=== PATIENT | female | born 1950 | race Two or more races ===

== ENCOUNTER 2016-11-24 15:26 | Inpatient (IN) | payer MEDICARE, MEDICAID ==
[~2016-11-24] VITALS: Ht 160 cm; Wt 98.0 kg
[2016-11-24] MEDS ORDERED: COLACE100 MG ORAL (15:55)
[2016-11-24] MEDS ORDERED: XARELTO10 MG ORAL (15:55)
[2016-11-24] MEDS ORDERED: ZANTAC150 MG ORAL (15:55)
[2016-11-24] MEDS ORDERED: DIGOXIN0.125 MG/2 ORAL (15:55)
[2016-11-24] MEDS ORDERED: GABAPENTIN100 MG ORAL (15:55)
[2016-11-24] MEDS ORDERED: DICLOFENAC POTA50 MG PO (15:55)
[2016-11-24] MEDS ORDERED: METFORMIN HCL1000 M1 ORAL (15:55)
[2016-11-24] MEDS ORDERED: LEVEMIR100 UNIT/1 SUBQ (15:55)
[2016-11-24] MEDS ORDERED: LOSARTAN POTASS50 MG ORAL (15:55)
[2016-11-24 16:50] LABS: BASOPHILS % (AUTO) 1.1 % (0.0-2.0); EOSINOPHILS % (AUTO) 0.6 % (0.0-3.0); LYMPHOCYTES % (AUTO) 23.2 % (20.0-45.0); MEAN CORPUSCULAR HEMOGLOBIN 27.4 PG (27.0-31.0); MEAN CORPUSCULAR HGB CONC 34.1 G/DL (32.0-36.0); MEAN CORPUSCULAR VOLUME 80 FL (80-99); MEAN PLATELET VOLUME 5.5 FL (6.5-10.1); MONOCYTES % (AUTO) 7.7 % (1.0-10.0); NEUTROPHILS % (AUTO) 67.4 % (45.0-75.0); PLATELET COUNT 369 K/UL (150-450); RED BLOOD COUNT 5.53 M/UL (4.20-5.40); RED CELL DISTRIBUTION WIDTH 14.5 % (11.6-14.8); WHITE BLOOD COUNT 12.2 K/UL (4.8-10.8)
--- NOTE | 2016-11-24 17:08 | Diagnostic Imaging Report ---
Indication: Pain, status post fall Technique: One view of the chest Comparison: 07/12/2009 Findings: Lungs and pleural spaces are clear. Heart size is upper limits normal. Bones are grossly intact. No significant change Impression: No acute process
--- NOTE | 2016-11-24 17:29 | Emergency Room Report ---
History of Present Illness General Chief Complaint: Multiple Trauma/Fall Source: Patient Present Illness HPI 66-year-old female presents to ED for evaluation. Patient states she had a syncopal episode with fall in the shower today. Patient felt dizzy and fell in the shower hitting her head. Questionable LOC. Patient states that she is having a headache with some neck pain and lower back pain. Pain is throbbing, 7 /10, nonradiating. No other aggravating or relieving factors. Denies chest pain or shortness of breath. Denies blurry vision nausea or vomiting. States that she takes Xarelto for A. fib. No other aggravating or relieving factors. Denies any other associated symptoms Allergies: Coded Allergies: PEACH (Verified Allergy, Intermediate, 11/24/16) SHRIMP (Verified Allergy, Intermediate, 11/24/16) Patient History Past Medical History: DM, HTN, AFib, asthma Past Surgical History: none Pertinent Family History: none Social History: Denies: alcohol use, drug use, smoking Now: No Immunizations: UTD Reviewed Nursing Documentation: PMH: Agreed, PSxH: Agreed Nursing Documentation-PMH Past Medical History: No History, Except For Hx Cardiac Problems: Yes - a-fib Hx Hypertension: Yes Hx Asthma: Yes Hx Diabetes: Yes Review of Systems All Other Systems: negative except mentioned in HPI Physical Exam Vital Signs Date Time Temp Pulse Resp B/P Pulse Ox O2 Delivery O2 Flow Rate FiO2 11/24/16 15:33 98.1 86 15 143/83 98 Room Air Sp02 EP Interpretation: reviewed, normal General Appearance: no apparent distress, alert, GCS 15, non-toxic Head: normocephalic, atraumatic Eyes: bilateral eye PERRL, bilateral eye normal inspection ENT: hearing grossly normal, normal pharynx, no angioedema, normal voice Neck: full range of motion, supple/symm/no masses, tender lateral, tender midline Respiratory: chest non-tender, lungs clear, normal breath sounds, speaking full sentences Cardiovascular #1: regular rate, rhythm, no edema Cardiovascular #2: 2+ carotid (R), 2+ carotid (L), 2+ radial (R), 2+ radial (L) , 2+ dorsalis pedis (R), 2+ dorsalis pedis (L) Gastrointestinal: normal bowel sounds, non tender, soft, non-distended, no guarding, no rebound Rectal: deferred Genitourinary: normal inspection, no CVA tenderness, vertebral tenderness - Lspine Musculoskeletal: back normal, gait/station normal, normal range of motion, non- tender Neurologic: alert, oriented x3, responsive, motor strength/tone normal, sensory intact, speech normal Psychiatric: judgement/insight normal, memory normal, mood/affect normal, no suicidal/homicidal ideation Reflexes: 3+ bicep (R), 3+ bicep (L), 3+ tricep (R), 3+ tricep (L), 3+ knee (R) , 3+ knee (L) Skin: normal color, no rash, warm/dry, well hydrated Lymphatic: no adenopathy Medical Decision Making Diagnostic Impression: Primary Impression: Syncope and collapse Additional Impression: Head trauma Qualified Codes: S09.90XA - Unspecified injury of head, initial encounter ER Course Hospital Course 66-year-old F presents ED s/p syncopal episode. headache, neck pain and back pain s/p fall. Differential diagnoses include: DE/unstable angina, arrythmia, dehydration, CVA/ TIA Clinical course Patient placed on stretcher. 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 After initial history and physical I ordered labs, EKG, chest x-ray, IVFs, CT Brain, CT Cspine, CT Lspine labs reviewed- no leukocytosis, hemoglobin/hematocrit ok, electrolytes okay, troponins negative, coags ok EKG- NSR, no acute changes Chest x-ray- no acute process CT brain-unremarkable CT Cpsine, CT Lspine no fx Given syncopal episode, patient's age are risk factors and patient currently on anticoagulation there is risk for delayed head bleed. Patient should be admitted Case discussed with Dr. Collazo and he agreed to accept the patient to his service for further care and support I. I feel this is a highly complex case requiring extensive working including EKG/Rhythm strip, Xray/CT/US, Blood/urine lab work, repeat exams while in ED, and administration of strong opiates/narcotics for pain control, admission to hospital or close patient follow up. Diagnosis - syncope, head trauma admitted to telemetry in serious condition Labs Test 11/24/16 16:25 White Blood Count 12.2 K/UL (4.8-10.8) Red Blood Count 5.53 M/UL (4.20-5.40) Hemoglobin 15.1 G/DL (12.0-16.0) Hematocrit 44.3 % (37.0-47.0) Mean Corpuscular Volume 80 FL (80-99) Mean Corpuscular Hemoglobin 27.4 PG (27.0-31.0) Mean Corpuscular Hemoglobin Concent 34.1 G/DL (32.0-36.0) Red Cell Distribution Width 14.5 % (11.6-14.8) Platelet Count 369 K/UL (150-450) Mean Platelet Volume 5.5 FL (6.5-10.1) Neutrophils (%) (Auto) 67.4 % (45.0-75.0) Lymphocytes (%) (Auto) 23.2 % (20.0-45.0) Monocytes (%) (Auto) 7.7 % (1.0-10.0) Eosinophils (%) (Auto) 0.6 % (0.0-3.0) Basophils (%) (Auto) 1.1 % (0.0-2.0) Prothrombin Time 10.0 SEC (9.30-11.50) Prothromb Time International Ratio 1.0 (0.9-1.1) Activated Partial Thromboplast Time 28 SEC (23-33) Sodium Level 132 mEQ/L (135-145) Potassium Level 4.1 mEQ/L (3.4-4.9) Chloride Level 90 mEQ/L (98-107) Carbon Dioxide Level 26 mEQ/L (20-30) Anion Gap 16 (5-15) Blood Urea Nitrogen 17 mg/dL (7-23) Creatinine 0.9 mg/dL (0.5-0.9) Estimat Glomerular Filtration Rate > 60 mL/min (>60) Glucose Level 238 mg/dL (74-106) Calcium Level 9.6 mg/dL (8.6-10.2) Total Bilirubin 0.3 mg/dL (0.0-1.2) Aspartate Amino Transf (AST/SGOT) 30 U/L (5-40) Alanine Aminotransferase (ALT/SGPT) 24 U/L (3-33) Alkaline Phosphatase 162 U/L (35-104) Total Creatine Kinase 64 U/L (26-140) Creatine Kinase MB 2.1 ng/mL (< 3.8) Creatine Kinase MB Relative Index 3.2 Troponin I < 0.30 ng/mL (<=0.30) Total Protein 7.2 g/dL (6.6-8.7) Albumin 3.5 g/dL (3.5-5.2) Globulin 3.7 g/dL Albumin/Globulin Ratio 0.9 (1.0-2.7) EKG Diagnostic Results Rate: normal Rhythm: NSR ST Segments: no acute changes ASA given to the pt in ED: No Rhythm Strip Diag. Results EP Interpretation: yes Rhythm: NSR, no PVC's, no ectopy Chest X-Ray Diagnostic Results EP Interpretation: No Findings: no consolidation, no effusion, no pneumothorax, no acute cardiopulmonary disease Number of Views: 1 CT/MRI/US Diagnostic Results CT/MRI/US Diagnostic Results : Imaging Test Ordered: CT Head, CT Cspine, CT Lspine Impression CT head- no acute process CT Cspine - no acute process CT Lspine - no acute process Last Vital Signs Date Time Temp Pulse Resp B/P Pulse Ox O2 Delivery O2 Flow Rate FiO2 11/24/16 15:33 98.1 86 15 143/83 98 Room Air Status: improved Disposition: ADMITTED INPATIENT Condition: Serious Referrals: NON PHYSICIAN (PCP) RUFINO WATSON M.D. Nov 24, 2016 17:29
[2016-11-24 17:31] LABS: TROPONIN I < 0.30 ng/mL (<=0.30)
[2016-11-24 17:34] LABS: ALANINE AMINOTRANSFERASE 24 U/L (3-33); ALBUMIN/GLOBULIN RATIO 0.9 (1.0-2.7); ANION GAP 16 (5-15); ASPARTATE AMINO TRANSFERASE 30 U/L (5-40); CALCIUM 9.6 mg/dL (8.6-10.2); CARBON DIOXIDE 26 mEQ/L (20-30); CHLORIDE 90 mEQ/L (98-107); CREATININE 0.9 mg/dL (0.5-0.9); GLOMERULAR FILTRATION RATE > 60 mL/min (>60); HEMOLYSIS 13; POTASSIUM 4.1 mEQ/L (3.4-4.9); SODIUM 132 mEQ/L (135-145); TOTAL PROTEIN 7.2 g/dL (6.6-8.7)
[2016-11-24 17:35] VITALS: BP 174/64
[2016-11-24 17:45] LABS: CKMB 2.1 ng/mL (< 3.8)
[2016-11-24] MEDS ORDERED: DuoNeb 0.5-3(2.5)mg/3ml neb HHN PRN (18:45)
[2016-11-24] MEDS ORDERED: Mylanta II UD 30ml ORAL PRN (18:45)
[2016-11-24] MEDS ORDERED: Nitroglycerin Subl 0.4mg tab (Bottle Of 25) SL PRN (18:45)
[2016-11-24] MEDS ORDERED: LORazepam Inj 2mg/ml 1ml IV PRN (18:45)
[2016-11-24] MEDS ORDERED: Miralax 17gm pkt ORAL PRN (18:45)
[2016-11-24 19:10] VITALS: BP 165/62
[2016-11-24] MEDS: NovoLOG Insulin Flexpen SUBQ SCH (21:04)
[2016-11-24] MEDS: Heparin 5000 units/ml inj SUBQ SCH (21:05)
[2016-11-25] VITALS (8 sets, daily range): BP systolic 130–177; BP diastolic 67–84
[2016-11-25] MEDS: NovoLOG Insulin Flexpen SUBQ SCH ×4 (06:28→21:49)
[2016-11-25 07:40] LABS: APPEARANCE,URINE CLEAR; KETONES,URINE NEGATIVE (NEGATIVE); LEUKOCYTE ESTERASE ,URINE NEGATIVE (NEGATIVE); NITRITE,URINE NEGATIVE (NEGATIVE); PH,URINE 6 (4.5-8.0); PROTEIN,URINE NEGATIVE (NEGATIVE); UROBILINOGEN,URINE NORMAL MG/DL (0.0-1.0)
[2016-11-25 07:54] LABS: BACTERIA,URINE FEW /HPF; SQUAMOUS EPITHELIAL CELL,UR FEW /LPF (NONE/OCC); WBC,URINE 0-2 /HPF (0 - 2)
[2016-11-25 08:07] LABS: BASOPHILS % (AUTO) 0.9 % (0.0-2.0); EOSINOPHILS % (AUTO) 2.3 % (0.0-3.0); LYMPHOCYTES % (AUTO) 32.5 % (20.0-45.0); MEAN CORPUSCULAR HGB CONC 31.9 G/DL (32.0-36.0); MEAN CORPUSCULAR VOLUME 82 FL (80-99); MEAN PLATELET VOLUME 5.7 FL (6.5-10.1); MONOCYTES % (AUTO) 7.4 % (1.0-10.0); NEUTROPHILS % (AUTO) 56.9 % (45.0-75.0); PLATELET COUNT 421 K/UL (150-450); RED BLOOD COUNT 5.45 M/UL (4.20-5.40); RED CELL DISTRIBUTION WIDTH 15.1 % (11.6-14.8); WHITE BLOOD COUNT 8.7 K/UL (4.8-10.8)
[2016-11-25 08:17] LABS: PROTHROMBIN TIME 9.7 SEC (9.30-11.50)
[2016-11-25 08:46] LABS: ALANINE AMINOTRANSFERASE 21 U/L (3-33); ANION GAP 12 (5-15); ASPARTATE AMINO TRANSFERASE 24 U/L (5-40); CALCIUM 9.4 mg/dL (8.6-10.2); CARBON DIOXIDE 29 mEQ/L (20-30); CHLORIDE 98 mEQ/L (98-107); CHOLESTEROL 223 mg/dL (< 200); CREATININE 0.8 mg/dL (0.5-0.9); GLOMERULAR FILTRATION RATE > 60 mL/min (>60); HEMOLYSIS 5; LDL CHOLESTEROL (CALC.) 144 mg/dL (60-99); POTASSIUM 4.1 mEQ/L (3.4-4.9); SODIUM 139 mEQ/L (135-145)
[2016-11-25] MEDS: Losartan 50mg tab ORAL SCH (09:00)
[2016-11-25] MEDS: Digoxin 0.125mg tab ORAL SCH (09:00)
[2016-11-25] MEDS: Heparin 5000 units/ml inj SUBQ SCH ×2 (09:15→21:50)
--- NOTE | 2016-11-25 11:05 | Diagnostic Imaging Report ---
Indications: Syncope, neck pain Technique: Continuous helical CT imaging of the cervical spine performed with automatic exposure was on a Siemens sensation [address] scanner. Axial, coronal and sagittal images reconstructed at 3 mm slice thicknesses. CTDI volume(s): 24 mGy Total DLP: 499 mGy-cm Findings: Comparison: None. Lordotic curvature is straightened.Vertebral alignment is intact. No fracture, facet subluxation or dislocation, prevertebral soft tissue swelling, or other acute changes are demonstrated. The C3-4 through C6-7 disc spaces are narrowed with marginal osteophyte formation. There are degrees of facet sclerosis and hypertrophy present from C2-3 through C6-7. This results in apparent multilevel spinal stenosis and neural foraminal narrowing.. IMPRESSION: Straightening of cervical lordosis. This may be secondary to degenerative changes, positioning and/or muscular spasm.. Otherwise no evidence of acute cervical injury Degenerative spondylosis This correlates with Dr. Gruber's preliminary report The CT scanner at [facility] is accredited by the [employer] and the scans are performed using protocols designed to limit radiation exposure to as low as reasonably achievable to attain images of sufficient resolution adequate for diagnostic evaluation.
--- NOTE | 2016-11-25 11:11 | Diagnostic Imaging Report ---
Indications: Low back pain Technique: Continuous helical CT imaging of the lumbar spine was performed with automatic exposure control on a Siemens sensation [address] scanner. Axial, coronal, and sagittal images were reconstructed at 3 mm slice thicknesses. CTDI volume(s): 25 mGy Total DLP: 676 mGy-cm Findings: Comparison: None Vertebral alignment is intact. No fracture, facet subluxation or dislocation, lytic destruction, surrounding paraspinous soft tissue abnormality, or other acute change identified. The L2-3 through L5-S1 intervertebral disc spaces demonstrate annular disc bulges with marginal osteophyte formation. Associated vacuum phenomenon at L4-5. 9? of facet hypertrophy L3-4 through L5-S1. Bilateral L4-5 facet joints mildly diastatic. Mild spinal stenosis is suggested at L3-4 and L4-5. IMPRESSION: No evidence of acute abnormality of the lumbar spine Multilevel degenerative spondylosis with suggestion of mild spinal stenosis
--- NOTE | 2016-11-25 12:08 | Consultation ---
History of Present Illness General Date patient seen: Nov 25, 2016 Chief Complaint: Multiple Trauma/Fall Referring physician: dr Collazo Present Illness HPI 66-year-old female presents to ED for evaluation of a syncopal episode with fall in the shower yesterday. Patient felt dizzy and fell in the shower hitting her head. Patient states that she is having a headache with some neck pain and lower back pain. Denies chest pain or shortness of breath. Denies blurry vision nausea or vomiting. States that she takes Xarelto for A. fib. Allergies: Coded Allergies: PEACH (Verified Allergy, Intermediate, 11/24/16) SHRIMP (Verified Allergy, Intermediate, 11/24/16) Medication History Scheduled Diclofenac Potassium (Diclofenac Potassium), 50 MG PO TID, (Reported) Digoxin* (Digoxin*), 0.125 MG ORAL DAILY, (Reported) Docusate Sodium* (Colace*), 100 MG ORAL TWICE A DAY, (Reported) Gabapentin* (Gabapentin*), 100 MG ORAL THREE TIMES A DAY, (Reported) Insulin Detemir (Levemir), 50 SUBQ ACBREAKFAST, (Reported) Losartan Potassium* (Losartan Potassium*), 50 MG ORAL DAILY, (Reported) Metformin Hcl* (Metformin Hcl*), 1,000 MG ORAL BID, (Reported) Ranitidine Hcl* (Zantac*), 300 MG ORAL DAILY, (Reported) Rivaroxaban (Xarelto*), 20 MG ORAL DAILY, (Reported) Patient History Healthcare decision maker NONE Resuscitation status Full Code Advanced Directive on File No Past Medical/Surgical History Past Medical/Surgical History: (1) Atrial fibrillation (2) Syncope and collapse (3) Head trauma Review of Systems All Other Systems: negative except mentioned in HPI Physical Exam General Appearance: WD/WN Lines, tubes and drains: peripheral HEENT: normocephalic, atraumatic Neck: non-tender, normal alignment Respiratory/Chest: chest wall non-tender, lungs clear Cardiovascular/Chest: normal peripheral pulses Abdomen: normal bowel sounds Genitourinary/Rectal: normal genital exam Extremities: normal range of motion Skin Exam: normal pigmentation Neurologic: drug abuse 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 Last 24 Hour Vital Signs Date Time Temp Pulse Resp B/P Pulse Ox O2 Delivery O2 Flow Rate FiO2 11/25/16 11:19 97.7 70 18 161/73 96 Room Air 11/25/16 09:00 166/74 11/25/16 09:00 65 11/25/16 07:39 96.1 65 18 166/74 96 Room Air 11/25/16 04:25 97.0 73 20 177/70 95 Room Air 11/25/16 04:00 69 11/25/16 01:13 98.0 75 20 148/80 93 Room Air 11/25/16 00:00 98.0 75 20 150/74 95 Room Air 11/25/16 00:00 69 11/24/16 20:00 74 11/24/16 19:24 98.1 77 16 165/62 98 Room Air 11/24/16 19:19 98.1 11/24/16 19:10 98.1 77 16 165/62 98 Room Air 11/24/16 17:35 98.1 80 16 174/64 98 Room Air 11/24/16 15:33 98.1 86 15 143/83 98 Room Air Intake and Output 11/24/16 11/25/16 19:00 07:00 Intake Total 250 ml Output Total 350 ml Balance -100 ml Intake Oral 250 ml Output Urine Total 350 ml # Voids 1 Laboratory Tests Test 11/24/16 16:25 11/25/16 06:18 11/25/16 06:58 White Blood Count 12.2 K/UL (4.8-10.8) H 8.7 K/UL (4.8-10.8) Red Blood Count 5.53 M/UL (4.20-5.40) H 5.45 M/UL (4.20-5.40) H Hemoglobin 15.1 G/DL (12.0-16.0) 14.2 G/DL (12.0-16.0) Hematocrit 44.3 % (37.0-47.0) 44.5 % (37.0-47.0) Mean Corpuscular Volume 80 FL (80-99) 82 FL (80-99) Mean Corpuscular Hemoglobin 27.4 PG (27.0-31.0) 26.0 PG (27.0-31.0) L Mean Corpuscular Hemoglobin Concent 34.1 G/DL (32.0-36.0) 31.9 G/DL (32.0-36.0) L Red Cell Distribution Width 14.5 % (11.6-14.8) 15.1 % (11.6-14.8) H Platelet Count 369 K/UL (150-450) 421 K/UL (150-450) Mean Platelet Volume 5.5 FL (6.5-10.1) L 5.7 FL (6.5-10.1) L Neutrophils (%) (Auto) 67.4 % (45.0-75.0) 56.9 % (45.0-75.0) Lymphocytes (%) (Auto) 23.2 % (20.0-45.0) 32.5 % (20.0-45.0) Monocytes (%) (Auto) 7.7 % (1.0-10.0) 7.4 % (1.0-10.0) Eosinophils (%) (Auto) 0.6 % (0.0-3.0) 2.3 % (0.0-3.0) Basophils (%) (Auto) 1.1 % (0.0-2.0) 0.9 % (0.0-2.0) Prothrombin Time 10.0 SEC (9.30-11.50) 9.7 SEC (9.30-11.50) Prothromb Time International Ratio 1.0 (0.9-1.1) 1.0 (0.9-1.1) Activated Partial Thromboplast Time 28 SEC (23-33) 28 SEC (23-33) Sodium Level 132 mEQ/L (135-145) L 139 mEQ/L (135-145) Potassium Level 4.1 mEQ/L (3.4-4.9) 4.1 mEQ/L (3.4-4.9) Chloride Level 90 mEQ/L (98-107) L 98 mEQ/L (98-107) Carbon Dioxide Level 26 mEQ/L (20-30) 29 mEQ/L (20-30) Anion Gap 16 (5-15) H 12 (5-15) Blood Urea Nitrogen 17 mg/dL (7-23) 13 mg/dL (7-23) Creatinine 0.9 mg/dL (0.5-0.9) 0.8 mg/dL (0.5-0.9) Estimat Glomerular Filtration Rate > 60 mL/min (>60) > 60 mL/min (>60) Glucose Level 238 mg/dL (74-106) H 216 mg/dL (74-106) H Calcium Level 9.6 mg/dL (8.6-10.2) 9.4 mg/dL (8.6-10.2) Total Bilirubin 0.3 mg/dL (0.0-1.2) 0.4 mg/dL (0.0-1.2) Aspartate Amino Transf (AST/SGOT) 30 U/L (5-40) 24 U/L (5-40) Alanine Aminotransferase (ALT/SGPT) 24 U/L (3-33) 21 U/L (3-33) Alkaline Phosphatase 162 U/L (35-104) H 155 U/L (35-104) H Total Creatine Kinase 64 U/L (26-140) Creatine Kinase MB 2.1 ng/mL (< 3.8) Creatine Kinase MB Relative Index 3.2 Troponin I < 0.30 ng/mL (<=0.30) Total Protein 7.2 g/dL (6.6-8.7) 7.0 g/dL (6.6-8.7) Albumin 3.5 g/dL (3.5-5.2) 3.6 g/dL (3.5-5.2) Globulin 3.7 g/dL 3.4 g/dL Albumin/Globulin Ratio 0.9 (1.0-2.7) L 1.0 (1.0-2.7) Triglycerides Level 117 mg/dL (< 150) Cholesterol Level 223 mg/dL (< 200) H LDL Cholesterol 144 mg/dL (60-99) H HDL Cholesterol 56 mg/dL (> 60) Cholesterol/HDL Ratio 4.0 (3.3-4.4) Thyroid Stimulating Hormone (TSH) 1.820 uIU/mL (0.300-4.500) Urine Color Pale yellow Urine Appearance Clear Urine pH 6 (4.5-8.0) Urine Specific [place] 1.010 (1.005-1.035) Urine Protein Negative (NEGATIVE) Urine Glucose (UA) Negative (NEGATIVE) Urine Ketones Negative (NEGATIVE) Urine Occult Blood 5+ (NEGATIVE) H Urine Nitrite Negative (NEGATIVE) Urine Bilirubin Negative (NEGATIVE) Urine Urobilinogen Normal MG/DL (0.0-1.0) Urine Leukocyte Esterase Negative (NEGATIVE) Urine RBC 10-15 /HPF (0 - 2) H Urine WBC 0-2 /HPF (0 - 2) Urine Squamous Epithelial Cells Few /LPF (NONE/OCC) Urine Bacteria Few /HPF (NONE) Height (Feet): 5 Height (Inches): 3.00 Weight (Pounds): 216 Medications Current Medications Medications (Trade) Dose Ordered Sig/Demetrio Route PRN Reason Start Time Stop Time Status Last Admin Dose Admin Acetaminophen (Tylenol) 650 mg Q4H PRN ORAL fever 11/24/16 18:45 12/24/16 18:44 11/25/16 06:26 Al Hydroxide/Mg Hydroxide (Mylanta II) 30 ml Q6H PRN ORAL dyspepsia 11/24/16 18:45 12/24/16 18:44 Albuterol/ Ipratropium (DuoNeb 0.5-3(2.5)mg/3ml) 3 ml EVERY 4 HOURS PRN HHN Shortness of Breath 11/24/16 18:45 11/29/16 18:44 Clonidine HCl (Catapres) 0.1 mg Q4H PRN ORAL For High Blood Pressure 11/24/16 18:45 12/24/16 18:44 Dextrose (Dextrose 50%) STAT PRN IV Hypoglycemia 11/24/16 18:45 12/24/16 18:44 Digoxin (Lanoxin) 0.125 mg DAILY ORAL 11/25/16 09:00 12/25/16 08:59 11/25/16 09:00 Gabapentin (Neurontin) 100 mg THREE TIMES A DAY ORAL 11/24/16 21:00 12/24/16 20:59 11/25/16 09:00 Heparin Sodium (Porcine) (Heparin 5000 units/ml) 5,000 units EVERY 12 HOURS SUBQ 11/24/16 21:00 12/24/16 20:59 11/25/16 09:15 Insulin Aspart (NovoLOG) BEFORE MEALS AND HS SUBQ 11/24/16 21:00 12/24/16 20:59 11/25/16 12:06 Lorazepam (Ativan 2mg/ml 1ml) 0.5 mg Q4H PRN IV For Anxiety 11/24/16 18:45 12/01/16 18:44 Losartan Potassium (Cozaar) 50 mg DAILY ORAL 11/25/16 09:00 12/25/16 08:59 11/25/16 09:00 Morphine Sulfate (Morphine Sulfate) 1 mg EVERY 4 HOURS PRN IVP For Pain 7-10 11/24/16 18:45 12/01/16 18:44 Nitroglycerin (Ntg) 0.4 mg Q5M X 3 DOSES PRN SL Prn Chest Pain 11/24/16 18:45 12/24/16 18:44 Ondansetron HCl (Zofran) 4 mg Q6H PRN IVP Nausea & Vomiting 11/24/16 18:45 12/24/16 18:44 Polyethylene Glycol (Miralax) 17 gm HSPRN PRN ORAL Constipation 11/24/16 18:45 12/24/16 18:44 Ranitidine HCl (Zantac) 300 mg DAILY ORAL 11/25/16 09:00 12/25/16 08:59 11/25/16 09:00 Temazepam (Restoril) 15 mg HSPRN PRN ORAL Insomnia 11/24/16 18:45 12/01/16 18:44 11/24/16 21:02 Assessment/Plan Problem List: (1) Atrial fibrillation ICD Codes: I48.91 - Unspecified atrial fibrillation SNOMED: 78741647 (2) Syncope and collapse ICD Codes: R55 - Syncope and collapse SNOMED: 688065638 (3) Head trauma ICD Codes: S09.90XA - Unspecified injury of head, initial encounter SNOMED: 00213731 Qualifiers: Qualified Codes: S09.90XA - Unspecified injury of head, initial encounter Assessment/Plan telemetry monitory cardiac evaluation echo cardiogram adjust cardiac meds JEANNINE OLIVEIRA Nov 25, 2016 12:08
--- NOTE | 2016-11-25 18:48 | History and Physical Report ---
DATE OF ADMISSION: 11/24/2016 TIME: 10 a.m. CONSULTANTS: 1. Froy Hollins M.D. 2. Augusto Lang M.D. 3. Gustavo Carrillo M.D. CHIEF COMPLAINT: Syncope and head trauma. BRIEF HISTORY: The patient is a 66-year-old female who lives at home presented with syncopal episode, possible head trauma, she fell on the showers. The patient not sure if she actually passed out, diagnosed with above, and admitted to telemetry for further care. Currently, calm in bed, no complaint. No chest pain. No shortness of breath. No nausea, vomiting or diarrhea. PAST MEDICAL HISTORY: Diabetes, hypertension, and atrial fibrillation. PAST SURGICAL HISTORY: , gall bladder and tonsillectomy. MEDICATIONS: Lanoxin, Cozaar, Zantac, Neurontin, heparin, NovoLog, morphine, MiraLAX, Zofran, Ativan, and Restoril. ALLERGIES: Denied. SOCIAL HISTORY: No smoking. Occasional alcohol. No intravenous drug abuse. FAMILY HISTORY: Noncontributory. PHYSICAL EXAMINATION: GENERAL: Calm in bed, oriented x3, no acute distress. VITAL SIGNS: Temperature 96 degrees, pulse 65, respirations 18, and blood pressure 166/74. CARDIOVASCULAR: No murmur. LUNGS: Poor air exchange. ABDOMEN: Positive bowel sounds. Nontender and nondistended. EXTREMITIES: No clubbing, cyanosis or edema. NEUROLOGIC: Cranial Nerves II through XII are grossly intact. The patient moves all four extremities. The patient's muscle strength 4/5. LABORATORY AND DIAGNOSTIC DATA: Initial white count 12.2 and now CBC is normal. BMP shows glucose 216, otherwise normal. Troponin is less than 0.3. INR is 1.0. Urinalysis shows 5+ occult blood. ASSESSMENT: 1. Syncope. 2. Head trauma. 3. Fall. 4. Hypertension. 5. Diabetes. 6. Atrial fibrillation. PLAN: Continue pre-medications. Dr. Hollins, Dr. Lang, and Dr. Carrillo to consult. Troponin q.8 h. x3. EKG in the morning. Blood pressure and blood sugar control. Resume home medications. OT/PT. Dietary evaluation. CBC and BMP in the morning. We will continue to follow this patient. Hayden Collazo D.O. DR: CEASAR JOB#: [id number] CC:
[2016-11-26] VITALS (7 sets, daily range): BP systolic 142–187; BP diastolic 60–90
[2016-11-26] MEDS: NovoLOG Insulin Flexpen SUBQ SCH ×4 (06:29→20:28)
--- NOTE | 2016-11-26 07:59 | Diagnostic Imaging Report ---
Indications: SYNCOPE Technique: Continuous helical CT imaging of the brain was performed with nonionic exposure control on a Siemens sensation [address] scanner. Axial and coronal images were reconstructed at 5 mm slice thickness and interval. CTDI volume(s): 70 mGy Total DLP: 1432 mGy-cm Findings: Comparison: None Confluent low attenuation is present in the bilateral periventricular white matter. Apparent small focus of low attenuation/parenchymal loss left cerebellar hemisphere. Ventricles, cisterns, and sulci are diffusely prominent. Degree of ventricular dilation appears out of portion to peripheral atrophy. No evidence of mass or hemorrhage, mass effect, midline shift, hydrocephalus, or increased intracranial pressure. Bone window images are unremarkable. Visualized paranasal sinuses and mastoid air cells are clear. IMPRESSION: No evidence of acute intracranial pathology Suggestion of old lacunar infarct left cerebral hemisphere. Bilateral cerebral periventricular white matter low attenuation, nonspecific, likely chronic microvascular ischemic in nature. Atrophy with ventriculomegaly. An element of normal pressure hydrocephalus must be considered. This correlates with preliminary report generated overnight by Dr. Gruber. The CT scanner at [facility] is accredited by the [employer] and the scans are performed using protocols designed to limit radiation exposure to as low as reasonably achievable to attain images of sufficient resolution adequate for diagnostic evaluation.
--- NOTE | 2016-11-26 08:00 | General Progress Note ---
Assessment/Plan Problem List: (1) Head trauma ICD Codes: S09.90XA - Unspecified injury of head, initial encounter SNOMED: [id number] Qualifiers: Qualified Codes: S09.90XA - Unspecified injury of head, initial encounter (2) Atrial fibrillation ICD Codes: I48.91 - Unspecified atrial fibrillation SNOMED: 65688207 (3) Syncope and collapse ICD Codes: R55 - Syncope and collapse SNOMED: 041901238 Status: stable, progressing, tolerating diet Assessment/Plan ot pt diet cardio neuro eval cbc bmp am Subjective Constitutional: Reports: weakness Allergies: Coded Allergies: PEACH (Verified Allergy, Intermediate, 11/24/16) SHRIMP (Verified Allergy, Intermediate, 11/24/16) All Systems: reviewed and negative except above Subjective sl head ache Objective Last 24 Hour Vital Signs Date Time Temp Pulse Resp B/P Pulse Ox O2 Delivery O2 Flow Rate FiO2 11/26/16 06:00 97.0 62 20 158/72 100 Room Air 96.0 11/26/16 04:00 97.2 67 20 167/78 100 Room Air 96.0 11/26/16 04:00 64 11/26/16 00:00 73 11/26/16 00:00 98.0 70 20 153/78 100 Room Air 11/25/16 20:00 98.0 77 20 157/84 100 Room Air 11/25/16 20:00 81 11/25/16 19:57 84 20 100 Room Air 11/25/16 19:53 81 18 97 Room Air 11/25/16 19:35 81 18 Room Air 11/25/16 16:00 65 11/25/16 15:33 97.3 70 18 130/67 95 Room Air 11/25/16 12:08 161/73 11/25/16 12:00 68 11/25/16 11:19 97.7 70 18 161/73 96 Room Air 11/25/16 09:00 166/74 11/25/16 09:00 65 11/25/16 08:00 72 Intake and Output 11/25/16 11/26/16 19:00 07:00 Intake Total 720 ml 124 ml Output Total 400 ml Balance 320 ml 124 ml Intake Oral 720 ml 124 ml Output Urine Total 400 ml # Voids 1 1 Height (Feet): 5 Height (Inches): 3.00 Weight (Pounds): 216 General Appearance: alert EENT: normal ENT inspection Neck: normal alignment Cardiovascular: normal peripheral pulses, normal rate, regular rhythm Respiratory/Chest: chest wall non-tender, lungs clear, normal breath sounds Abdomen: normal bowel sounds, non tender, soft Extremities: normal inspection Edema: no edema noted Arm (L), no edema noted Arm (R), no edema noted Leg (L), no edema noted Leg (R), no edema noted Pedal (L), no edema noted Pedal (R), no edema noted Generalized Neurologic: responsive, motor weakness Skin: normal pigmentation, warm/dry DUNCAN BETHEA Nov 26, 2016 08:00
[2016-11-26] MEDS: Digoxin 0.125mg tab ORAL SCH (08:32)
[2016-11-26] MEDS: Losartan 50mg tab ORAL SCH (08:33)
[2016-11-26 08:37] LABS: BASOPHILS % (AUTO) 1.9 % (0.0-2.0); EOSINOPHILS % (AUTO) 2.6 % (0.0-3.0); LYMPHOCYTES % (AUTO) 35.4 % (20.0-45.0); MEAN CORPUSCULAR HEMOGLOBIN 25.8 PG (27.0-31.0); MEAN CORPUSCULAR HGB CONC 31.4 G/DL (32.0-36.0); MEAN CORPUSCULAR VOLUME 82 FL (80-99); MEAN PLATELET VOLUME 5.5 FL (6.5-10.1); MONOCYTES % (AUTO) 7.6 % (1.0-10.0); NEUTROPHILS % (AUTO) 52.6 % (45.0-75.0); PLATELET COUNT 357 K/UL (150-450); RED BLOOD COUNT 5.55 M/UL (4.20-5.40); RED CELL DISTRIBUTION WIDTH 14.9 % (11.6-14.8)
[2016-11-26] MEDS: Heparin 5000 units/ml inj SUBQ SCH ×2 (08:39→20:28)
[2016-11-26 08:47] LABS: ANION GAP 14 (5-15); CARBON DIOXIDE 25 mEQ/L (20-30); CHLORIDE 96 mEQ/L (98-107); CREATININE 0.8 mg/dL (0.5-0.9); GLOMERULAR FILTRATION RATE > 60 mL/min (>60); HEMOLYSIS 5; POTASSIUM 4.1 mEQ/L (3.4-4.9); SODIUM 135 mEQ/L (135-145)
--- NOTE | 2016-11-26 15:57 | Cardiology Progress Note ---
Assessment/Plan Assessment/Plan The patient is seen and examined, full consult note will be dictated shortly. Objective Last 24 Hour Vital Signs Date Time Temp Pulse Resp B/P Pulse Ox O2 Delivery O2 Flow Rate FiO2 11/26/16 15:28 96.6 74 18 152/70 96 Room Air 11/26/16 12:00 71 11/26/16 11:31 97.3 77 18 142/74 93 Room Air 11/26/16 08:33 149/77 11/26/16 08:32 73 11/26/16 08:00 73 11/26/16 07:59 97.0 73 18 187/90 97 Room Air 11/26/16 06:40 69 18 Room Air 21 11/26/16 06:00 97.0 62 20 158/72 100 Room Air 96.0 11/26/16 04:00 97.2 67 20 167/78 100 Room Air 96.0 11/26/16 04:00 64 11/26/16 00:00 73 11/26/16 00:00 98.0 70 20 153/78 100 Room Air 11/25/16 20:00 98.0 77 20 157/84 100 Room Air 11/25/16 20:00 81 11/25/16 19:57 84 20 100 Room Air 11/25/16 19:53 81 18 97 Room Air 11/25/16 19:35 81 18 Room Air 11/25/16 16:00 65 Intake and Output 11/25/16 11/26/16 19:00 07:00 Intake Total 720 ml 124 ml Output Total 400 ml Balance 320 ml 124 ml Intake Oral 720 ml 124 ml Output Urine Total 400 ml # Voids 1 1 Laboratory Tests Test 11/26/16 07:35 White Blood Count 8.0 K/UL (4.8-10.8) Red Blood Count 5.55 M/UL (4.20-5.40) H Hemoglobin 14.3 G/DL (12.0-16.0) Hematocrit 45.6 % (37.0-47.0) Mean Corpuscular Volume 82 FL (80-99) Mean Corpuscular Hemoglobin 25.8 PG (27.0-31.0) L Mean Corpuscular Hemoglobin Concent 31.4 G/DL (32.0-36.0) L Red Cell Distribution Width 14.9 % (11.6-14.8) H Platelet Count 357 K/UL (150-450) Mean Platelet Volume 5.5 FL (6.5-10.1) L Neutrophils (%) (Auto) 52.6 % (45.0-75.0) Lymphocytes (%) (Auto) 35.4 % (20.0-45.0) Monocytes (%) (Auto) 7.6 % (1.0-10.0) Eosinophils (%) (Auto) 2.6 % (0.0-3.0) Basophils (%) (Auto) 1.9 % (0.0-2.0) Sodium Level 135 mEQ/L (135-145) Potassium Level 4.1 mEQ/L (3.4-4.9) Chloride Level 96 mEQ/L (98-107) L Carbon Dioxide Level 25 mEQ/L (20-30) Anion Gap 14 (5-15) Blood Urea Nitrogen 13 mg/dL (7-23) Creatinine 0.8 mg/dL (0.5-0.9) Estimat Glomerular Filtration Rate > 60 mL/min (>60) Glucose Level 200 mg/dL (74-106) H Calcium Level 9.0 mg/dL (8.6-10.2) LAUREL VANEGAS Nov 26, 2016 15:57
--- NOTE | 2016-11-26 18:44 | Pulmonology Progress Note ---
Assessment/Plan Problems: (1) Atrial fibrillation (2) Syncope and collapse (3) Head trauma Assessment/Plan monitor in telemetry cardio note appreciated pain control titrate cardiac meds. Subjective ROS Limited/Unobtainable: No Interval Events: still c/o neck pain Allergies: Coded Allergies: PEACH (Verified Allergy, Intermediate, 11/24/16) SHRIMP (Verified Allergy, Intermediate, 11/24/16) Objective Last 24 Hour Vital Signs Date Time Temp Pulse Resp B/P Pulse Ox O2 Delivery O2 Flow Rate FiO2 11/26/16 16:00 76 11/26/16 15:28 96.6 74 18 152/70 96 Room Air 11/26/16 12:00 71 11/26/16 11:31 97.3 77 18 142/74 93 Room Air 11/26/16 08:33 149/77 11/26/16 08:32 73 11/26/16 08:00 73 11/26/16 07:59 97.0 73 18 187/90 97 Room Air 11/26/16 06:40 69 18 Room Air 21 11/26/16 06:00 97.0 62 20 158/72 100 Room Air 96.0 11/26/16 04:00 97.2 67 20 167/78 100 Room Air 96.0 11/26/16 04:00 64 11/26/16 00:00 73 11/26/16 00:00 98.0 70 20 153/78 100 Room Air 11/25/16 20:00 98.0 77 20 157/84 100 Room Air 11/25/16 20:00 81 11/25/16 19:57 84 20 100 Room Air 11/25/16 19:53 81 18 97 Room Air 11/25/16 19:35 81 18 Room Air Intake and Output 11/25/16 11/26/16 19:00 07:00 Intake Total 720 ml 124 ml Output Total 400 ml Balance 320 ml 124 ml Intake Oral 720 ml 124 ml Output Urine Total 400 ml # Voids 1 1 Objective General Appearance: WD/WN HEENT: normocephalic, atraumatic Respiratory/Chest: chest wall non-tender, lungs clear Cardiovascular: normal peripheral pulses, normal rate, regular rhythm Abdomen: normal bowel sounds, soft, non tender, no organomegaly Extremities: no cyanosis, no clubbing Skin: no rash, no lesions 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 Lymphatic: no neck adenopathy, no groin adenopathy Laboratory Tests 11/26/16 07:35: White Blood Count 8.0, Red Blood Count 5.55H, Hemoglobin 14.3, Hematocrit 45.6, Mean Corpuscular Volume 82, Mean Corpuscular Hemoglobin 25.8L, Mean Corpuscular Hemoglobin Concent 31.4L, Red Cell Distribution Width 14.9H, Platelet Count 357 , Mean Platelet Volume 5.5L, Neutrophils (%) (Auto) 52.6, Lymphocytes (%) (Auto ) 35.4, Monocytes (%) (Auto) 7.6, Eosinophils (%) (Auto) 2.6, Basophils (%) ( Auto) 1.9, Sodium Level 135, Potassium Level 4.1, Chloride Level 96L, Carbon Dioxide Level 25, Anion Gap 14, Blood Urea Nitrogen 13, Creatinine 0.8, Estimat Glomerular Filtration Rate > 60, Glucose Level 200H, Calcium Level 9.0 Current Medications Medications (Trade) Dose Ordered Sig/Demetrio Route PRN Reason Start Time Stop Time Status Last Admin Dose Admin Acetaminophen (Tylenol) 650 mg Q4H PRN ORAL fever 11/24/16 18:45 12/24/16 18:44 11/25/16 06:26 Al Hydroxide/Mg Hydroxide (Mylanta II) 30 ml Q6H PRN ORAL dyspepsia 11/24/16 18:45 12/24/16 18:44 Albuterol/ Ipratropium (DuoNeb 0.5-3(2.5)mg/3ml) 3 ml EVERY 4 HOURS PRN HHN Shortness of Breath 11/24/16 18:45 11/29/16 18:44 11/25/16 19:56 Clonidine HCl (Catapres) 0.1 mg Q4H PRN ORAL For High Blood Pressure 11/24/16 18:45 12/24/16 18:44 11/25/16 12:08 Dextrose (Dextrose 50%) STAT PRN IV Hypoglycemia 11/24/16 18:45 12/24/16 18:44 Digoxin (Lanoxin) 0.125 mg DAILY ORAL 11/25/16 09:00 12/25/16 08:59 11/26/16 08:32 Gabapentin (Neurontin) 100 mg THREE TIMES A DAY ORAL 11/24/16 21:00 12/24/16 20:59 11/26/16 17:13 Heparin Sodium (Porcine) (Heparin 5000 units/ml) 5,000 units EVERY 12 HOURS SUBQ 11/24/16 21:00 12/24/16 20:59 11/26/16 08:39 Insulin Aspart (NovoLOG) BEFORE MEALS AND HS SUBQ 11/24/16 21:00 12/24/16 20:59 11/26/16 17:14 Lorazepam (Ativan 2mg/ml 1ml) 0.5 mg Q4H PRN IV For Anxiety 11/24/16 18:45 12/01/16 18:44 Losartan Potassium (Cozaar) 50 mg DAILY ORAL 11/25/16 09:00 12/25/16 08:59 11/26/16 08:33 Morphine Sulfate (Morphine Sulfate) 1 mg EVERY 4 HOURS PRN IVP For Pain 7-10 11/24/16 18:45 12/01/16 18:44 Nitroglycerin (Ntg) 0.4 mg Q5M X 3 DOSES PRN SL Prn Chest Pain 11/24/16 18:45 12/24/16 18:44 Ondansetron HCl (Zofran) 4 mg Q6H PRN IVP Nausea & Vomiting 11/24/16 18:45 12/24/16 18:44 Polyethylene Glycol (Miralax) 17 gm HSPRN PRN ORAL Constipation 11/24/16 18:45 12/24/16 18:44 Ranitidine HCl (Zantac) 300 mg DAILY ORAL 11/25/16 09:00 12/25/16 08:59 11/26/16 08:33 Temazepam (Restoril) 15 mg HSPRN PRN ORAL Insomnia 11/24/16 18:45 12/01/16 18:44 11/25/16 21:48 JEANNINE OLIVEIRA Nov 26, 2016 18:44
--- NOTE | 2016-11-26 18:51 | Consultation ---
Consult Note Consult Note NEUROLOGY CONSULTATION: Full note dictated #[id number] 66 y/o, RH, CF with a PH of psoriasis, HTN, DM, A-fib, ADHD, Obesity On 11/24/16 was in the bathroom felt dizzy and the left side of the head hit the wall and she collapsed. She is uncertain if she passed out completely or not, however she was dazed for ~ 1-2 hours following the fall. At this time she has a left sided headache and neck pain. ON EXAM: G 2/4 C/PS and trapezius spasm L>R. Mild memory problems Globally diminished reflexes. IMPRESSION: Possible syncopal episode followed by CHT. Residual headache and neck pain. CT of brain with atrophy and old left cerebellar infarct. REC: Continue present Rx Carotid duplex Flexeril 10 mg q HS. Observe. Amy Juan M.D., M.S.P.AMY JONES Nov 26, 2016 18:51
--- NOTE | 2016-11-26 19:01 | Cardiology Report ---
APPROVED REPORT EXAM: Two-dimensional and M-mode echocardiogram with Doppler and color Doppler. INDICATION Left ventricular function M-Mode DIMENSIONS IVSd1.0 (0.7-1.1cm)Left Atrium (MM)4.1 (1.6-4.0cm) LVDd4.2 (3.5-5.6cm)Aortic Root2.6 (2.0-3.7cm) PWd0.9 (0.7-1.1cm)Aortic Cusp Exc.1.6 (1.5-2.0cm) LVDs2.4 (2.5-4.0cm) PWs1.2 cm Technically difficult study due to poor acoustic windows. Normal left ventricular chamber size, systolic function and wall motion. Left ventricular ejection fraction estimated to be 60-65%. Mild left ventricular hypertrophy. No evidence of pericardial fat or effusion. Right cardiac chamber sizes are within normal limits. Mild left atrial enlargement by 2D. Focal aortic valve sclerosis with adequate cusp excursion Aortic root calcification Thickened mitral valve leaflets with normal excursion. Mild mitral annulus and aortic root calcification. Pulmonic valve not well visualized. Normal tricuspid valve structure. IVC is normal in size with physiologic collapse. A color flow and spectral Doppler study was performed and revealed: No aortic regurgitation. Trace mitral regurgitation. Mitral inflow velocities ind left Left ventricular diastolic dysfunction grade 1. Trace tricuspid regurgitation. Tricuspid systolic velocities suggests peak right ventricular systolic pressure of 18 mmHg
[2016-11-26 19:39] LABS: THYROID STIMULATING HORMONE 2.18 uIU/mL (0.300-4.500)
[2016-11-26 20:09] LABS: HEMOGLOBIN A1C 9.5 % (< 6.0)
[2016-11-26] MEDS: Cyclobenzaprine 10mg Tab ORAL SCH (21:07)
[2016-11-27] VITALS (8 sets, daily range): BP systolic 122–178; BP diastolic 71–111
--- NOTE | 2016-11-27 00:48 | Consultation ---
DATE OF CONSULTATION: 11/26/2016 NEUROLOGY CONSULTATION REQUESTING PHYSICIAN: Hayden Collazo D.O. HISTORY: Ms. Jory Castro is a 66-year-old, right-handed, lady, who does have a past history of hypertension, diabetes mellitus, chronic atrial fibrillation, ADHD, and obesity. She was functioning relatively well until the afternoon of 11/24/2016 when she was in the bathroom. She suddenly felt dizzy and the next thing she remembers is hitting the left side of her head against the wall and then collapsing. She is uncertain if she passed out completely or not. However, she did feel quite dazed after the bump on the head and she continued to feel little dazed for approximately an hour or two. She was then brought into the [facility] emergency room and evaluated. Imaging studies of the brain revealed no intracranial hemorrhage. Since she has been here, she has continued to have left-sided headache and significant neck pain. However, she denies any weakness on one side or the other, numbness on one side or the other, problems with speech, problems with language, problems with vision, or any other neurological problems. She also denies any similar symptoms in the past. PAST MEDICAL HISTORY: Significant for hypertension, diabetes mellitus, atrial fibrillation, ADHD, and obesity. FAMILY HISTORY: Nothing significant. PERSONAL HISTORY: Home: She lives at home with her son and daughter. 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 Habits: She denies the use of tobacco or illicit drugs, but does have rare alcoholic drink. PRESENT MEDICATIONS: Include digoxin, losartan, ranitidine, gabapentin, heparin for DVT prophylaxis, insulin, DuoNeb, Tylenol p.r.n., morphine p.r.n.,MiraLAX p.r.n., Zofran p.r.n., lorazepam p.r.n., temazepam p.r.n., Mylanta p.r.n., nitroglycerin, and clonidine p.r.n. PHYSICAL EXAMINATION: GENERAL: She is a well-developed, well-nourished, obese, lady, lying in bed, in no acute distress. VITAL SIGNS: Pulse 74 per minute, blood pressure 152/70 mmHg, respirations 18 per minute, and temperature 96.6 degrees Fahrenheit. HEAD:i Normocephalic with a tender spot over the left parietal area. EENT: Examination: Benign. NECK: No neck rigidity was observed. She did have a grade 2/4 cervical paraspinal muscle and trapezius spasm slightly more marked on the left than on the right. NEUROLOGICAL EXAMINATION: MENTAL STATUS EXAMINATION: She was alert and awake. She was oriented to person, place, and time. She was able to recall 3/3 words immediately but could only remember 2/3 words in 1 minute and 3 minutes on the first trial. On the second trial, she was able to remember all 3 words in 1 minute and 3 minutes. She was able to remember presidents Trump through Cantu senior. Her mathematical skills were fairly good. Her visuospatial function was preserved. SPEECH: She had no dysarthria. LANGUAGE: She had a mildly anomia for low-frequency words. CRANIAL NERVE EXAMINATION: II: The visual guerrero were intact on confrontation testing. III, IV & : The external ocular movements were full and the pupils 3 mm in diameter, equal, round, regular, and reactive to light. V: She had normal facial sensations and the temporales, masseters, and pterygoids functioned normally. VII: She had normal facial expressions and no facial asymmetry. VIII: She was able to hear well bilaterally and had no nystagmus. IX: The palate moved symmetrically on phonation. X: She had no hoarseness of voice. XI: The sternocleidomastoids and trapezii functioned normally. XII: The tongue was in the midline without any fasciculations or atrophy. MOTOR SYSTEM: The tone was normal in all four extremities. Examination of muscle mass revealed no focal wasting. Examination of power revealed grade 5/5 power in all muscle groups tested. SENSORY EXAMINATION: She had intact sensation to pinprick, light touch, and graphesthesia. COORDINATION: She performed well on yelchg-ea-[id number] and irfe-fv-movw testing. On Romberg test, she swayed, but did not fall to one side or the other. REFLEXES: 1+ and bilaterally symmetrical at the biceps, triceps, brachioradialis, and knees. 0 at both ankles. The plantar responses were flexor bilaterally. STANCE: She stood up with a minimally wide-base. GAIT: She walked with a minimally wide-based, but stable gait. DIAGNOSTIC IMPRESSION: 1. Ms. Jory Castro is a 66-year-old, right-handed, lady, who does have a past history of psoriasis, hypertension, diabetes mellitus, atrial fibrillation, attention deficit hyperactivity disorder, and obesity, who on 11/24/2016 felt dizzy in the bathroom, bumped the left side of her head and then collapsed. It is uncertain if she passed out completely or not. She however felt dazed for an hour or two after the fall. At this point in time , she does have a left-sided headache and neck pain, but does not complain of any other neurological symptoms. 2. On neurological examination, at this time, she does have grade 2/4 cervical paraspinal muscle and trapezius spasm more marked on the left than on the right. In addition, she has mild problems with memory and higher cognitive function. She also has globally diminished deep tendon reflexes. 3. The CT scan of the brain without contrast reveals atrophy and an old left cerebellar infarct, but no acute pathology. 4. The patient's history, neurological examination, and imaging studies are most compatible with a possible syncopal episode associated with closed head trauma. The residual headache and neck pain are most probably related to the trauma. RECOMMENDATIONS: 1. Agree with management thus far. 2. Would continue present management. 3. The patient will be started on Flexeril 10 mg at bedtime for her neck spasm. 4. Carotid duplex should be performed. 5. The patient should be worked up thoroughly for other treatable causes of her syncopal episode. 6. Depending on how the patient fares over the next day or so, further recommendations will be given. Thank you for entrusting me with the care of Ms. Castro. I shall follow her with you. Clarence Juan M.D., M.S.P.H. DR: Roshan JOB#: [id number] MORGAN
[2016-11-27] MEDS: NovoLOG Insulin Flexpen SUBQ SCH ×4 (06:12→22:07)
[2016-11-27 06:30] LABS: ANION GAP 18 (5-15); CARBON DIOXIDE 22 mEQ/L (20-30); CHLORIDE 95 mEQ/L (98-107); CREATININE 0.7 mg/dL (0.5-0.9); GLOMERULAR FILTRATION RATE > 60 mL/min (>60); HEMOLYSIS 13; POTASSIUM 4.8 mEQ/L (3.4-4.9); SODIUM 135 mEQ/L (135-145)
[2016-11-27] MEDS: Digoxin 0.125mg tab ORAL SCH (08:37)
[2016-11-27] MEDS: Losartan 50mg tab ORAL SCH (08:37)
[2016-11-27] MEDS: Heparin 5000 units/ml inj SUBQ SCH ×2 (08:42→22:05)
[2016-11-27] MEDS: Morphine Sulfate 2mg/ml Inj IVP PRN ×2 (08:43→12:36)
[2016-11-27 09:13] LABS: BASOPHILS % (AUTO) 1.1 % (0.0-2.0); EOSINOPHILS % (AUTO) 2.7 % (0.0-3.0); MEAN CORPUSCULAR HEMOGLOBIN 25.7 PG (27.0-31.0); MEAN CORPUSCULAR HGB CONC 31.6 G/DL (32.0-36.0); MEAN CORPUSCULAR VOLUME 81 FL (80-99); MEAN PLATELET VOLUME 5.7 FL (6.5-10.1); MONOCYTES % (AUTO) 10.3 % (1.0-10.0); NEUTROPHILS % (AUTO) 51.9 % (45.0-75.0); PLATELET COUNT 377 K/UL (150-450); RED BLOOD COUNT 5.22 M/UL (4.20-5.40); WHITE BLOOD COUNT 7.9 K/UL (4.8-10.8)
--- NOTE | 2016-11-27 12:26 | General Progress Note ---
Assessment/Plan Problem List: (1) Head trauma ICD Codes: S09.90XA - Unspecified injury of head, initial encounter SNOMED: 50651794 Qualifiers: Qualified Codes: S09.90XA - Unspecified injury of head, initial encounter (2) Atrial fibrillation ICD Codes: I48.91 - Unspecified atrial fibrillation SNOMED: 65744703 (3) Syncope and collapse ICD Codes: R55 - Syncope and collapse SNOMED: 086556897 Status: stable, progressing, tolerating diet Assessment/Plan ot pt diet cardio neuro eval dc plan Subjective Constitutional: Reports: weakness Allergies: Coded Allergies: PEACH (Verified Allergy, Intermediate, 11/24/16) SHRIMP (Verified Allergy, Intermediate, 11/24/16) All Systems: reviewed and negative except above Subjective sl head ache Objective Last 24 Hour Vital Signs Date Time Temp Pulse Resp B/P Pulse Ox O2 Delivery O2 Flow Rate FiO2 11/27/16 08:43 74 18 Room Air 96.0 21 11/27/16 08:37 144/79 11/27/16 08:37 96 11/27/16 08:00 98.1 76 18 144/79 96 Venturi Mask 11/27/16 04:12 98.1 69 19 159/74 95 Room Air 11/27/16 04:00 64 11/27/16 00:29 74 154/77 11/27/16 00:17 98.2 73 17 154/77 93 Room Air 11/27/16 00:00 75 11/26/16 20:00 98.4 78 19 148/60 95 Room Air 11/26/16 20:00 78 79 82 11/26/16 20:00 80 11/26/16 19:34 82 18 Room Air 21 11/26/16 16:00 76 11/26/16 15:28 96.6 74 18 152/70 96 Room Air Intake and Output 11/26/16 11/27/16 19:00 07:00 Intake Total 840 ml 240 ml Balance 840 ml 240 ml Intake Oral 840 ml 240 ml # Voids 4 2 Laboratory Tests 11/27/16 05:35: Sodium Level 135, Potassium Level 4.8, Chloride Level 95L, Carbon Dioxide Level 22, Anion Gap 18H, Blood Urea Nitrogen 13, Creatinine 0.7, Estimat Glomerular Filtration Rate > 60, Glucose Level 298H, Calcium Level 9.0 11/27/16 08:55: White Blood Count 7.9, Red Blood Count 5.22, Hemoglobin 13.4, Hematocrit 42.5, Mean Corpuscular Volume 81, Mean Corpuscular Hemoglobin 25.7L, Mean Corpuscular Hemoglobin Concent 31.6L, Red Cell Distribution Width 15.0H, Platelet Count 377 , Mean Platelet Volume 5.7L, Neutrophils (%) (Auto) 51.9, Lymphocytes (%) (Auto ) 34.0, Monocytes (%) (Auto) 10.3H, Eosinophils (%) (Auto) 2.7, Basophils (%) ( Auto) 1.1, Vitamin D 25-Hydroxy [Pending], 25-Hydroxy Vitamin D2 [Pending], 25- Hydroxy Vitamin D3 [Pending], Folate [Pending], Rapid Plasma Reagin [Pending] Height (Feet): 5 Height (Inches): 3.00 Weight (Pounds): 216 General Appearance: alert EENT: normal ENT inspection Neck: normal alignment Cardiovascular: normal peripheral pulses, normal rate, regular rhythm Respiratory/Chest: chest wall non-tender, lungs clear, normal breath sounds Abdomen: normal bowel sounds, non tender, soft Extremities: normal inspection Edema: no edema noted Arm (L), no edema noted Arm (R), no edema noted Leg (L), no edema noted Leg (R), no edema noted Pedal (L), no edema noted Pedal (R), no edema noted Generalized Neurologic: responsive, motor weakness Skin: normal pigmentation, warm/dry DUNCAN BETHEA Nov 27, 2016 12:25
--- NOTE | 2016-11-27 13:01 | Pulmonology Progress Note ---
Assessment/Plan Problems: (1) Atrial fibrillation (2) Syncope and collapse (3) Head trauma Assessment/Plan monitor in telemetry cardio note appreciated pain control titrate cardiac meds. d/w neuro can go home if ok with dr Lang Subjective ROS Limited/Unobtainable: No Interval Events: no new complains, doing pt Allergies: Coded Allergies: PEACH (Verified Allergy, Intermediate, 11/24/16) SHRIMP (Verified Allergy, Intermediate, 11/24/16) Objective Last 24 Hour Vital Signs Date Time Temp Pulse Resp B/P Pulse Ox O2 Delivery O2 Flow Rate FiO2 11/27/16 12:36 178/88 11/27/16 08:43 74 18 Room Air 96.0 21 11/27/16 08:37 144/79 11/27/16 08:37 96 11/27/16 08:00 98.1 76 18 144/79 96 Venturi Mask 11/27/16 04:12 98.1 69 19 159/74 95 Room Air 11/27/16 04:00 64 11/27/16 00:29 74 154/77 11/27/16 00:17 98.2 73 17 154/77 93 Room Air 11/27/16 00:00 75 11/26/16 20:00 98.4 78 19 148/60 95 Room Air 11/26/16 20:00 78 79 82 11/26/16 20:00 80 11/26/16 19:34 82 18 Room Air 21 11/26/16 16:00 76 11/26/16 15:28 96.6 74 18 152/70 96 Room Air Intake and Output 11/26/16 11/27/16 19:00 07:00 Intake Total 840 ml 240 ml Balance 840 ml 240 ml Intake Oral 840 ml 240 ml # Voids 4 2 Objective General Appearance: WD/WN HEENT: normocephalic, atraumatic Respiratory/Chest: chest wall non-tender, lungs clear Cardiovascular: normal peripheral pulses, normal rate, regular rhythm Abdomen: normal bowel sounds, soft, non tender, no organomegaly Extremities: no cyanosis, no clubbing Skin: no rash, no lesions 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 Lymphatic: no neck adenopathy, no groin adenopathy Laboratory Tests 11/27/16 05:35: Sodium Level 135, Potassium Level 4.8, Chloride Level 95L, Carbon Dioxide Level 22, Anion Gap 18H, Blood Urea Nitrogen 13, Creatinine 0.7, Estimat Glomerular Filtration Rate > 60, Glucose Level 298H, Calcium Level 9.0 11/27/16 08:55: White Blood Count 7.9, Red Blood Count 5.22, Hemoglobin 13.4, Hematocrit 42.5, Mean Corpuscular Volume 81, Mean Corpuscular Hemoglobin 25.7L, Mean Corpuscular Hemoglobin Concent 31.6L, Red Cell Distribution Width 15.0H, Platelet Count 377 , Mean Platelet Volume 5.7L, Neutrophils (%) (Auto) 51.9, Lymphocytes (%) (Auto ) 34.0, Monocytes (%) (Auto) 10.3H, Eosinophils (%) (Auto) 2.7, Basophils (%) ( Auto) 1.1, Vitamin D 25-Hydroxy [Pending], 25-Hydroxy Vitamin D2 [Pending], 25- Hydroxy Vitamin D3 [Pending], Folate [Pending], Rapid Plasma Reagin [Pending] Current Medications Medications (Trade) Dose Ordered Sig/Demetrio Route PRN Reason Start Time Stop Time Status Last Admin Dose Admin Acetaminophen (Tylenol) 650 mg Q4H PRN ORAL fever 11/24/16 18:45 12/24/16 18:44 11/25/16 06:26 Al Hydroxide/Mg Hydroxide (Mylanta II) 30 ml Q6H PRN ORAL dyspepsia 11/24/16 18:45 12/24/16 18:44 Albuterol/ Ipratropium (DuoNeb 0.5-3(2.5)mg/3ml) 3 ml EVERY 4 HOURS PRN HHN Shortness of Breath 11/24/16 18:45 11/29/16 18:44 11/25/16 19:56 Clonidine HCl (Catapres) 0.1 mg Q4H PRN ORAL For High Blood Pressure 11/24/16 18:45 12/24/16 18:44 11/27/16 12:36 Cyclobenzaprine HCl (Flexeril) 10 mg QHS ORAL 11/26/16 21:00 12/26/16 20:59 11/26/16 21:07 Dextrose (Dextrose 50%) STAT PRN IV Hypoglycemia 11/24/16 18:45 12/24/16 18:44 Digoxin (Lanoxin) 0.125 mg DAILY ORAL 11/25/16 09:00 12/25/16 08:59 11/27/16 08:37 Gabapentin (Neurontin) 100 mg THREE TIMES A DAY ORAL 11/24/16 21:00 12/24/16 20:59 11/27/16 08:37 Heparin Sodium (Porcine) (Heparin 5000 units/ml) 5,000 units EVERY 12 HOURS SUBQ 11/24/16 21:00 12/24/16 20:59 11/27/16 08:42 Insulin Aspart (NovoLOG) BEFORE MEALS AND HS SUBQ 11/24/16 21:00 12/24/16 20:59 11/27/16 11:07 Lorazepam (Ativan 2mg/ml 1ml) 0.5 mg Q4H PRN IV For Anxiety 11/24/16 18:45 12/01/16 18:44 Losartan Potassium (Cozaar) 50 mg DAILY ORAL 11/25/16 09:00 12/25/16 08:59 11/27/16 08:37 Morphine Sulfate (Morphine Sulfate) 1 mg EVERY 4 HOURS PRN IVP For Pain 7-10 11/24/16 18:45 12/01/16 18:44 11/27/16 12:36 Nitroglycerin (Ntg) 0.4 mg Q5M X 3 DOSES PRN SL Prn Chest Pain 11/24/16 18:45 12/24/16 18:44 Ondansetron HCl (Zofran) 4 mg Q6H PRN IVP Nausea & Vomiting 11/24/16 18:45 12/24/16 18:44 Polyethylene Glycol (Miralax) 17 gm HSPRN PRN ORAL Constipation 11/24/16 18:45 12/24/16 18:44 Ranitidine HCl (Zantac) 300 mg DAILY ORAL 11/25/16 09:00 12/25/16 08:59 11/27/16 08:41 Temazepam (Restoril) 15 mg HSPRN PRN ORAL Insomnia 11/24/16 18:45 12/01/16 18:44 11/25/16 21:48 JEANNINE OLIVEIRA Nov 27, 2016 13:01
--- NOTE | 2016-11-27 13:11 | Neurology Progress Note ---
Interim History Interim History Interim History Ms. Castro feels well. The mind is clear. She denies any new neurologic symptoms. She has had no further episodes of loss of consciousness. The neck pain is a little better. The headache is also better. Review of Systems Neuro Review of Systems Benign. Objective Physical Exam Last Vital Signs Date Time Temp Pulse Resp B/P Pulse Ox O2 Delivery O2 Flow Rate FiO2 11/27/16 12:36 178/88 11/27/16 08:43 74 18 Room Air 96.0 21 11/27/16 08:00 98.1 96 Laboratory Tests Test 11/27/16 05:35 11/27/16 08:55 Sodium Level 135 mEQ/L (135-145) Potassium Level 4.8 mEQ/L (3.4-4.9) Chloride Level 95 mEQ/L (98-107) L Carbon Dioxide Level 22 mEQ/L (20-30) Anion Gap 18 (5-15) H Blood Urea Nitrogen 13 mg/dL (7-23) Creatinine 0.7 mg/dL (0.5-0.9) Estimat Glomerular Filtration Rate > 60 mL/min (>60) Glucose Level 298 mg/dL (74-106) H Calcium Level 9.0 mg/dL (8.6-10.2) White Blood Count 7.9 K/UL (4.8-10.8) Red Blood Count 5.22 M/UL (4.20-5.40) Hemoglobin 13.4 G/DL (12.0-16.0) Hematocrit 42.5 % (37.0-47.0) Mean Corpuscular Volume 81 FL (80-99) Mean Corpuscular Hemoglobin 25.7 PG (27.0-31.0) L Mean Corpuscular Hemoglobin Concent 31.6 G/DL (32.0-36.0) L Red Cell Distribution Width 15.0 % (11.6-14.8) H Platelet Count 377 K/UL (150-450) Mean Platelet Volume 5.7 FL (6.5-10.1) L Neutrophils (%) (Auto) 51.9 % (45.0-75.0) Lymphocytes (%) (Auto) 34.0 % (20.0-45.0) Monocytes (%) (Auto) 10.3 % (1.0-10.0) H Eosinophils (%) (Auto) 2.7 % (0.0-3.0) Basophils (%) (Auto) 1.1 % (0.0-2.0) Vitamin D 25-Hydroxy Pending 25-Hydroxy Vitamin D2 Pending 25-Hydroxy Vitamin D3 Pending Folate Pending Rapid Plasma Reagin Pending Neurologic Exam Objective PHYSICAL EXAMINATION: GENERAL: She is a well-developed, well-nourished, obese, lady, lying in bed, in no acute distress. HEAD:i Normocephalic with a tender spot over the left parietal area. EENT: Examination: Benign. NECK: No neck rigidity was observed. She did have a grade 1/4 cervical paraspinal muscle and trapezius spasm slightly more marked on the left than on the right. NEUROLOGICAL EXAMINATION: MENTAL STATUS EXAMINATION: She was alert and awake. She was oriented to person, place, and time. She was able to recall 3/3 words immediately and in 1 minute and 3 minutes on the second trial. She was able to remember presidents Trump through Cantu senior. Her mathematical skills were fairly good. Her visuospatial function was preserved. SPEECH: She had no dysarthria. LANGUAGE: She had a mildly anomia for low-frequency words. CRANIAL NERVE EXAMINATION: II: The visual guerrero were intact on confrontation testing. III, IV & : The external ocular movements were full and the pupils 3 mm in diameter, equal, round, regular, and reactive to light. V: She had normal facial sensations and the temporales, masseters, and pterygoids functioned normally. VII: She had normal facial expressions and no facial asymmetry. VIII: She was able to hear well bilaterally and had no nystagmus. IX: The palate moved symmetrically on phonation. X: She had no hoarseness of voice. XI: The sternocleidomastoids and trapezii functioned normally. XII: The tongue was in the midline without any fasciculations or atrophy. MOTOR SYSTEM: The tone was normal in all four extremities. Examination of muscle mass revealed no focal wasting. Examination of power revealed grade 5/5 power in all muscle groups tested. SENSORY EXAMINATION: She had intact sensation to pinprick, light touch, and graphesthesia. COORDINATION: She performed well on [id number]-[id number] and [id number]-[id number] testing. On Romberg test, she swayed, but did not fall to one side or the other. REFLEXES: 1+ and bilaterally symmetrical at the biceps, triceps, brachioradialis, and knees. 0 at both ankles. The plantar responses were flexor bilaterally. STANCE: She stood up with a minimally wide-base. GAIT: She walked with a minimally wide-based, but stable gait. Impression/Recommendations Diagnostic Impression 1. Ms. Jory Castro is a 66-year-old, right-handed, lady, who does have a past history of psoriasis, hypertension, diabetes mellitus, atrial fibrillation, attention deficit hyperactivity disorder, and obesity, who on felt dizzy in the bathroom, bumped the left side of her head and then collapsed. It is uncertain if she passed out completely or not. She however felt dazed for an hour or two after the fall. 2. She feels better today. She still has a mild left-sided headache and neck pain, but does not complain of any other neurological symptoms. 3. On neurological examination, at this time, she does have grade 1/4 cervical paraspinal muscle and trapezius spasm more marked on the left than on the right. In addition, she has mild problems with memory and higher cognitive function. She also has globally diminished deep tendon reflexes. 4. The CT scan of the brain without contrast reveals atrophy and an old left cerebellar infarct, but no acute pathology. 5. The patient's history, neurological examination, and imaging studies are most compatible with a possible syncopal episode associated with closed head trauma. The residual headache and neck pain are most probably related to the trauma. 6. The headache and neck pain is improving. Recommendations 1. Contine present management. 2. Continue Flexeril 10 mg at bedtime for her neck spasm. 3. Better diabetes control. 4. Increase activity as tolerated. Amy Greer M.D., M.S.P.H. AMY GREER Nov 27, 2016 13:11
--- NOTE | 2016-11-27 14:28 | Diagnostic Imaging Report ---
APPROVED REPORT CPT Code: 94115 Vascular Symptoms CVA/TIA: Risk Factors TIA/CVA History arteries. The Doppler spectral flow analysis indicates the degree of stenosis is minimal (5%) in the common carotid artery, mild (20%) in the internal carotid artery, and moderate (45%) in the external carotid artery. VERTEBRAL- The vertebral artery is patent, without evidence of stenosis or steal. arteries. The Doppler spectral flow analysis indicates the degree of stenosis is minimal (5%) in the common carotid artery, mild (30-40%) in the internal carotid artery, and mild (30%) in the external carotid artery. VERTEBRAL- The vertebral artery is patent, without evidence of stenosis or steal.
--- NOTE | 2016-11-27 21:33 | Cardiology Progress Note ---
Assessment/Plan Assessment/Plan 1. Syncope/pre-syncope likely due to hypovolemia as the patient had diarrhea a few days prior to this event, continue hydration, orthostatics are negative now. Echo reveals normal LVEF. 2. PAF, continue Xarelto, no runs of atrial fibrillation has been reported so far in this admission. Subjective Subjective Sinus rhythm at 66. Objective Last 24 Hour Vital Signs Date Time Temp Pulse Resp B/P Pulse Ox O2 Delivery O2 Flow Rate FiO2 11/27/16 20:37 73 78 76 11/27/16 20:36 98.3 73 19 122/71 Room Air 11/27/16 16:00 77 11/27/16 16:00 97.4 62 18 146/111 95 Room Air 11/27/16 14:39 71 146/80 11/27/16 12:36 178/88 11/27/16 12:00 75 11/27/16 12:00 97.0 72 18 178/88 97 Room Air 11/27/16 08:43 74 18 Room Air 96.0 21 11/27/16 08:37 144/79 11/27/16 08:37 96 11/27/16 08:00 66 11/27/16 08:00 98.1 76 18 144/79 96 Venturi Mask 11/27/16 08:00 72 73 75 11/27/16 04:12 98.1 69 19 159/74 95 Room Air 11/27/16 04:00 64 11/27/16 00:29 74 154/77 11/27/16 00:17 98.2 73 17 154/77 93 Room Air 11/27/16 00:00 75 Intake and Output 11/26/16 11/27/16 19:00 07:00 Intake Total 840 ml 240 ml Balance 840 ml 240 ml Intake Oral 840 ml 240 ml # Voids 4 2 2D Echo: LVEF 55%, RVSP 18 mmHg, Grade I LVDD Laboratory Tests Test 11/27/16 05:35 11/27/16 08:55 Sodium Level 135 mEQ/L (135-145) Potassium Level 4.8 mEQ/L (3.4-4.9) Chloride Level 95 mEQ/L (98-107) L Carbon Dioxide Level 22 mEQ/L (20-30) Anion Gap 18 (5-15) H Blood Urea Nitrogen 13 mg/dL (7-23) Creatinine 0.7 mg/dL (0.5-0.9) Estimat Glomerular Filtration Rate > 60 mL/min (>60) Glucose Level 298 mg/dL (74-106) H Calcium Level 9.0 mg/dL (8.6-10.2) White Blood Count 7.9 K/UL (4.8-10.8) Red Blood Count 5.22 M/UL (4.20-5.40) Hemoglobin 13.4 G/DL (12.0-16.0) Hematocrit 42.5 % (37.0-47.0) Mean Corpuscular Volume 81 FL (80-99) Mean Corpuscular Hemoglobin 25.7 PG (27.0-31.0) L Mean Corpuscular Hemoglobin Concent 31.6 G/DL (32.0-36.0) L Red Cell Distribution Width 15.0 % (11.6-14.8) H Platelet Count 377 K/UL (150-450) Mean Platelet Volume 5.7 FL (6.5-10.1) L Neutrophils (%) (Auto) 51.9 % (45.0-75.0) Lymphocytes (%) (Auto) 34.0 % (20.0-45.0) Monocytes (%) (Auto) 10.3 % (1.0-10.0) H Eosinophils (%) (Auto) 2.7 % (0.0-3.0) Basophils (%) (Auto) 1.1 % (0.0-2.0) Vitamin D 25-Hydroxy Pending 25-Hydroxy Vitamin D2 Pending 25-Hydroxy Vitamin D3 Pending Folate Pending Rapid Plasma Reagin Pending Objective HEENT: normocephalic, atraumatic, bilateral eye PERRL Neck: negative JVD, no carotid bruit Respiratory: chest non-tender, lungs clear, normal breath sounds, speaking full sentences Cardiovascular : Normal S1S2, regular rate, rhythm, no murmurs, gallops or rubs Gastrointestinal: normal bowel sounds, non tender, soft, non-distended, no guarding, no rebound Musculoskeletal: No edema, clubbing or cyanosis LAUREL VANEGAS Nov 27, 2016 21:33
[2016-11-27] MEDS: Cyclobenzaprine 10mg Tab ORAL SCH (21:58)
[2016-11-28 00:17] VITALS: BP 129/84
[2016-11-28 03:55] VITALS: BP 131/78
[2016-11-28] MEDS: NovoLOG Insulin Flexpen SUBQ SCH ×2 (06:19→11:46)
[2016-11-28 08:30] VITALS: BP 146/86
[2016-11-28] MEDS: Losartan 50mg tab ORAL SCH (08:44)
[2016-11-28] MEDS: Digoxin 0.125mg tab ORAL SCH (08:45)
[2016-11-28] MEDS: Heparin 5000 units/ml inj SUBQ SCH (08:46)
[2016-11-28 11:38] VITALS: BP 154/79
--- NOTE | 2016-11-28 13:25 | General Progress Note ---
Assessment/Plan Problem List: (1) Head trauma ICD Codes: S09.90XA - Unspecified injury of head, initial encounter SNOMED: 51443221 Qualifiers: Qualified Codes: S09.90XA - Unspecified injury of head, initial encounter (2) Atrial fibrillation ICD Codes: I48.91 - Unspecified atrial fibrillation SNOMED: 98895057 (3) Syncope and collapse ICD Codes: R55 - Syncope and collapse SNOMED: 019173979 Status: stable, progressing, tolerating diet Assessment/Plan ot pt diet cardio neuro eval dc plan Subjective Constitutional: Reports: weakness Allergies: Coded Allergies: PEACH (Verified Allergy, Intermediate, 11/24/16) SHRIMP (Verified Allergy, Intermediate, 11/24/16) All Systems: reviewed and negative except above Subjective calm in bed Objective Last 24 Hour Vital Signs Date Time Temp Pulse Resp B/P Pulse Ox O2 Delivery O2 Flow Rate FiO2 11/28/16 11:38 97.0 69 20 154/79 95 Nasal Cannula 2.0 11/28/16 08:45 74 11/28/16 08:44 146/86 11/28/16 08:40 78 11/28/16 08:35 74 11/28/16 08:30 75 11/28/16 08:30 97.3 75 18 146/86 96 Room Air 11/28/16 07:54 74 18 Room Air 11/28/16 07:51 74 11/28/16 04:00 66 11/28/16 03:55 98.2 78 18 131/78 95 Room Air 11/28/16 00:17 98.6 86 19 129/84 98 Room Air 11/28/16 00:00 66 11/27/16 20:37 73 78 76 11/27/16 20:36 98.3 73 19 122/71 Room Air 11/27/16 20:00 68 11/27/16 19:05 76 18 Room Air 21 11/27/16 16:00 77 11/27/16 16:00 97.4 62 18 146/111 95 Room Air 11/27/16 14:39 71 146/80 Intake and Output 11/27/16 11/28/16 19:00 07:00 Intake Total 830 ml Output Total 1150 ml Balance -320 ml Intake Oral 830 ml Output Urine Total 1150 ml # Voids 2 3 Height (Feet): 5 Height (Inches): 3.00 Weight (Pounds): 216 General Appearance: alert EENT: normal ENT inspection Neck: normal alignment Cardiovascular: normal peripheral pulses, normal rate, regular rhythm Respiratory/Chest: chest wall non-tender, lungs clear, normal breath sounds Abdomen: normal bowel sounds, non tender, soft Extremities: normal inspection Edema: no edema noted Arm (L), no edema noted Arm (R), no edema noted Leg (L), no edema noted Leg (R), no edema noted Pedal (L), no edema noted Pedal (R), no edema noted Generalized Neurologic: responsive, motor weakness Skin: normal pigmentation, warm/dry DUNCAN BETHEA Nov 28, 2016 13:25
[2016-11-28 14:08] VITALS: BP 141/79
--- NOTE | 2016-11-28 22:58 | Pulmonology Progress Note ---
Assessment/Plan Problems: (1) Atrial fibrillation (2) Syncope and collapse (3) Head trauma Assessment/Plan dc home today cardio note appreciated pain control titrate cardiac meds. d/w neuro Subjective ROS Limited/Unobtainable: No Interval Events: no new complains Allergies: Coded Allergies: PEACH (Verified Allergy, Intermediate, 11/24/16) SHRIMP (Verified Allergy, Intermediate, 11/24/16) Objective Last 24 Hour Vital Signs Date Time Temp Pulse Resp B/P Pulse Ox O2 Delivery O2 Flow Rate FiO2 11/28/16 14:08 141/79 11/28/16 11:38 97.0 69 20 154/79 95 Nasal Cannula 2.0 11/28/16 11:33 69 11/28/16 08:45 74 11/28/16 08:44 146/86 11/28/16 08:40 78 11/28/16 08:35 74 11/28/16 08:30 75 11/28/16 08:30 97.3 75 18 146/86 96 Room Air 11/28/16 07:54 74 18 Room Air 21 11/28/16 07:51 74 11/28/16 04:00 66 11/28/16 03:55 98.2 78 18 131/78 95 Room Air 11/28/16 00:17 98.6 86 19 129/84 98 Room Air 11/28/16 00:00 66 Intake and Output 11/27/16 11/28/16 19:00 07:00 Intake Total 830 ml Output Total 1150 ml Balance -320 ml Intake Oral 830 ml Output Urine Total 1150 ml # Voids 2 3 Objective General Appearance: WD/WN HEENT: normocephalic, atraumatic Respiratory/Chest: chest wall non-tender, lungs clear Cardiovascular: normal peripheral pulses, normal rate, regular rhythm Abdomen: normal bowel sounds, soft, non tender, no organomegaly Extremities: no cyanosis, no clubbing Skin: no rash, no lesions 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
--- NOTE | 2016-11-29 19:11 | Discharge Summary ---
Discharge Summary Hospital Course Date of Admission Nov 24, 2016 at 16:55 Date of Discharge Nov 28, 2016 at 14:53 Admitting Diagnosis syncope/fall HPI Jory Castro is a 66 year old female who was admitted on Nov 24, 2016 at 16: 55 for Syncope, Fall Hospital Course [id number] Discharge Discharge Disposition Patient was discharged to Home with Home Health(06) Discharge Diagnoses: Janae Galvan NP Nov 29, 2016 19:11
--- NOTE | 2016-11-30 04:48 | Discharge Summary 2 SIG ---
DATE OF ADMISSION: 11/24/2016 DATE OF DISCHARGE: 11/28/2016 CONSULTANTS: 1. Clarence Juan M.D. 2. Froy Hollins M.D. 3. Augusto Lang M.D. BRIEF HOSPITAL COURSE: The patient is a 66-year-old female, who presented to ED after a syncopal episode with fall in the shower. Earlier on the day of admission, the patient felt dizzy and fell hitting the head. Unable to recall if there was any loss of consciousness. She was complaining of headache and pain on the lower back and neck and has a history of hypertension, diabetes, and atrial fibrillation, for which she is taking Xarelto. On evaluation at ED, EKG showed normal sinus rhythm with no acute changes. Chest x-ray showed no acute process. CT of the brain was unremarkable. CT of the cervical spine and lumbar spine showed no fracture. Given the patient's syncopal episode with the patient's age and risk factors as the patient is on anticoagulation, the patient was admitted for further workup. She was seen by Dr. Juan. On examination, she has a grade 2/4 cervical paraspinal muscles and trapezius spasm more marked on the left than on the right. She had mild problems with memory and higher cognitive function, and a globally diminished deep tendon reflexes. The patient has possible syncopal episode associated with closed head trauma with residual headache and neck pain most probably related to trauma. She was started on Flexeril 10 mg nightly for the neck spasms. Carotid ultrasound showed minimal stenosis on the common carotid artery. Mild stenosis in the right and left internal carotid artery and moderate stenosis on the external carotid artery and vertebral artery bilaterally is patent without evidence of stenosis or steal. Dr. Lang was consulted. The patient has a syncope likely due to hypovolemia as the patient had diarrhea for the past few days. She was given IV hydration and echocardiogram was done and revealed normal left ventricular ejection fraction. She was continued on Xarelto and on monitor did not show any runs of atrial fibrillation. She was given pain control and cardiac medications were titrated. She was eventually discharged home with home health. FINAL DIAGNOSES: 1. Syncope secondary to hypovolemia. 2. Closed head trauma. 3. Paroxysmal atrial fibrillation. Hayden Collazo D.O. I have been assigned to dictate discharge summary on this account and I was not involved in the patient's management. Janae Galvan N.P. DR: Agnes JOB#: [id number] CC: MORGAN
[2016-11-30 12:15] LABS: VITAMIN D 25-OH TOTAL 15 ng/mL (.)
== END 2016-11-28 14:53 | disposition home health service (06) | DRG 914 ==
LOC: EMR 15:48 → 2E 16:55 → EDBEDREQ 18:52
DX: S09.90XA Unspecified injury of head, initial encounter (principal); I48.0 Paroxysmal atrial fibrillation; E86.1 Hypovolemia; R55 Syncope and collapse; I10 Essential (primary) hypertension; E11.9 Type 2 diabetes mellitus without complications; S19.9XXA Unspecified injury of neck, initial encounter; W18.2XXA Fall in (into) shower or empty bathtub, initial encounter; J45.909 Unspecified asthma, uncomplicated; Z79.01 Long term (current) use of anticoagulants; Y92.002 Bathroom of unspecified non-institutional (private) residence as the place of occurrence of the external cause; F90.9 Attention-deficit hyperactivity disorder, unspecified type; E66.9 Obesity, unspecified; R51 Headache
CPT/HCPCS: 36415; 70450; 71010; 72125; 72131; 80048; 80053; 80061; 81003; 82306; 82550; 82553; 82607; 82746; 82962; 83036; 84443; 84484; 85025; 85610; 85651; 85730; 86592; 93005; 93306; 93880; 94640; 94664; 97803; J1815